=== PATIENT | male | born 1975 | race Caucasian/White ===

== ENCOUNTER 2018-09-18 03:13 | Emergency (ER) | payer BC ==
[2018-09-18] MEDS: ONDANSETRON (ODT) 4 MG TAB ODT (05:15)
[2018-09-18] MEDS: IBUPROFEN 800 MG TAB PO (05:15)
[2018-09-18 06:17] LABS: AMPHETAMINE/METHAMPHETAMINE Negative (NEGATIVE); BARBITURATES Negative (NEGATIVE); BENZODIAZEPINES Negative (NEGATIVE); CANNABINOIDS Negative (NEGATIVE); COCAINE Negative (NEGATIVE); OPIATES Negative (NEGATIVE)
== END 2018-09-18 05:47 | disposition home or self-care (01) ==
LOC: FTE 03:13
DX: S09.90XA Unspecified injury of head, initial encounter (principal); I10 Essential (primary) hypertension; Q04.6 Congenital cerebral cysts; X58.XXXA Exposure to other specified factors, initial encounter; Y92.9 Unspecified place or not applicable
CPT/HCPCS: 70450; 80307; 99284-25

== ENCOUNTER 2018-09-18 22:58 | Emergency (ER) | payer BC | END 2018-09-19 02:27 | disposition home or self-care (01) | LOC: FTE 22:58 | DX: S60.022A Contusion of left index finger without damage to nail, initial encounter (principal); I10 Essential (primary) hypertension; W22.8XXA Striking against or struck by other objects, initial encounter; Y92.9 Unspecified place or not applicable | CPT/HCPCS: 73130; 73130-LT; 99283-25 ==